=== PATIENT | female | born 1990 | race African-American/Black ===

== ENCOUNTER 2017-11-21 06:10 | Inpatient (IN) | payer MEDICARE, MEDICAID ==
[~2017-11-21] VITALS: Ht 160 cm; Wt 61.2 kg
[~2017-11-21 06:10] MED LIST: NITR-87 PO; PREN-88 PO
[2017-11-21] MEDS ORDERED: LACTATED RINGERS 1,000 ML IV SCH (06:21)
[2017-11-21] MEDS ORDERED: CARBOPROST TROMETHAMINE 250 MCG/ML AMPUL IM PRN (06:30)
[2017-11-21] MEDS ORDERED: LIDOCAINE HCL 1% 20ML VIAL (Pyxis) INJ INFIL PRN (06:30)
[2017-11-21] MEDS ORDERED: METHYLERGONOVINE MALEATE 0.2 MG/ML IM PRN (06:30)
[2017-11-21] MEDS ORDERED: DEXT 5%/LACTATED RINGERS 1,000 ML IV SCH (06:30)
[2017-11-21] MEDS ORDERED: RHO(D) IMMUNE GLOBULIN 300 MCG/SYR IM PRN (06:30)
[2017-11-21] MEDS ORDERED: MISOPROSTOL 200MCG TABLET VG PRN (06:30)
[2017-11-21] MEDS ORDERED: BUTORPHANOL TARTRATE 2 MG/ML VIAL IM PRN (06:45)
[2017-11-21] MEDS ORDERED: PENICILLIN G POTASSIUM 5 MMU in DEXT 5% WATER 100 ML IV SCH (07:00)
[2017-11-21] MEDS: DEXT 5%/LR + PITOCIN 20UNITS/L 1,000 ML IV SCH ×2 (09:16→09:23)
[2017-11-21 09:45] LABS: HEMATOCRIT. 38.4 % (36.0-48.0); HEMOGLOBIN. 12.8 g/dL (12.0-16.0); MEAN CORPUSCULAR HEMOGLOBIN 26.6 pg (28.0-32.0); MEAN CORPUSCULAR VOLUME 79.7 fL (81.0-99.0); MEAN PLATELET VOLUME 8.2 fl (7.4-10.4); PLATELET 168 x1000/uL (130-400); RED BLOOD CELL COUNT 4.82 mill/uL (4.2-5.4); RED CELL DISTRIBUTION WIDTH 15.1 % (11.6-14.6)
[2017-11-21] MEDS ORDERED: LANOLIN OINT 0.25 GM TUBE TOP PRN (09:45)
[2017-11-21 09:52] LABS: INR 0.9; PARTIAL THROMBOPLASTIN TIME 25.4 sec (23.4-31.0); PROTHROMBIN TIME 9.9 sec (9.4-11.6)
[2017-11-21 10:00] VITALS: BP 120/66
[2017-11-21 10:04] LABS: CLARITY URINE CLEAR (CLEAR); COLOR URINE YELLOW (YELLOW); KETONES URINE TRACE (NEGATIVE); LEUKOCYTE ESTERASE URINE NEGATIVE (NEGATIVE); NITRITE URINE NEGATIVE (NEGATIVE); OCCULT BLOOD URINE NEGATIVE (NEGATIVE); PH URINE 8.5 (4.5-8.0); PROTEIN URINE NEGATIVE (NEGATIVE); UROBILINOGEN URINE 0.2 E.U./dL (0.2-1.0)
[2017-11-21 10:30] VITALS: BP 93/60
[2017-11-21 10:36] LABS: *AMPHETAMINES SCREEN URINE NEGATIVE (NEGATIVE); *BARBITURATES SCREEN URINE NEGATIVE (NEGATIVE); *BENZODIAZEPINES SCREEN URINE NEGATIVE (NEGATIVE); *COCAINE SCREEN URINE NEGATIVE (NEGATIVE); CANNABINOID URINE SCREEN NEGATIVE (NEGATIVE); METHADONE URINE SCREEN NEGATIVE (NEGATIVE); OPIATES URINE SCREEN NEGATIVE (NEGATIVE); PHENCYCLIDINE URINE SCREEN NEGATIVE (NEGATIVE)
[2017-11-21 10:46] LABS: HEPATITIS B SURFACE ANTIGEN NEGATIVE; RUBELLA IGG 25.6 IU/mL (4.99-10)
[2017-11-21] MEDS ORDERED: PENICILLIN G POTASSIUM 2.5 MMU in DEXTROSE 5% WATER 50 ML IV SCH (11:00)
[2017-11-21] MEDS ORDERED: IBUPROFEN 400MG TABLET PO PRN (11:15)
[2017-11-21 11:33] LABS: PLATELET ESTIMATE NORMAL
[2017-11-21] MEDS: IBUPROFEN 800MG TABLET PO PRN ×2 (12:01→22:23)
[2017-11-21 16:00] VITALS: BP 99/53
[2017-11-21 20:20] VITALS: BP 107/63
[2017-11-21 22:23] VITALS: BP 108/64
[2017-11-21 23:20] VITALS: BP 105/65
[2017-11-22] MEDS ORDERED: TETANUS, DIPHTHERIA, PERTUSSIS VAC/PF 0.5ML (>7YR OLD) IM ONE (03:00)
[2017-11-22 06:18] LABS: BASOPHILS % 0.3 % (0.0-2.0); EOSINOPHILS % 0.8 % (0.0-5.0); HEMATOCRIT. 30.6 % (36.0-48.0); HEMOGLOBIN. 10.2 g/dL (12.0-16.0); LYMPHOCYTES % 16.6 % (20.0-50.0); MEAN CORPUSCULAR HEMOGLOBIN 26.5 pg (28.0-32.0); MEAN CORPUSCULAR VOLUME 79.2 fL (81.0-99.0); MEAN PLATELET VOLUME 8.7 fl (7.4-10.4); MONOCYTES % 8.2 % (2.0-8.0); NEUTROPHILS % 74.1 % (40.0-76.0); PLATELET 161 x1000/uL (130-400); RED BLOOD CELL COUNT 3.86 mill/uL (4.2-5.4); RED CELL DISTRIBUTION WIDTH 14.7 % (11.6-14.6)
[2017-11-22] MEDS: IBUPROFEN 800MG TABLET PO PRN ×2 (07:46→16:29)
[2017-11-22 08:00] VITALS: BP 100/62
[2017-11-22 16:00] VITALS: BP 99/63
[2017-11-22 19:30] VITALS: BP 115/66
[2017-11-22 22:00] VITALS: BP 116/67
[2017-11-22 23:45] VITALS: BP 103/65
[2017-11-23] MEDS: IBUPROFEN 800MG TABLET PO PRN (07:35)
[2017-11-23 07:50] VITALS: BP 103/73
== END 2017-11-23 13:47 | disposition home or self-care (01) | DRG 775 ==
LOC: OBSVTOIN 06:10 → L&D 06:10 → 7EST PP/OB 10:33
PROVIDERS: ADMIT Obstetrics & Gynecology; ATTEND Obstetrics & Gynecology
PROC: 10E0XZZ Delivery of Products of Conception, External Approach (ICD-10-PCS; principal; 2017-11-21 07:36)
DX: O99.52 Diseases of the respiratory system complicating childbirth (principal); D62 Acute posthemorrhagic anemia; O99.03 Anemia complicating the puerperium; J45.909 Unspecified asthma, uncomplicated; Z37.0 Single live birth; Z3A.39 39 weeks gestation of pregnancy; Z88.8 Allergy status to other drugs, medicaments and biological substances
CPT/HCPCS: 36415; 80305; 81003; 85025; 85610; 85730; 86592; 86703; 86762; 86850; 86900; 87340; 90715; J2540; J2590; J7060; J7121

== ENCOUNTER 2021-06-26 18:30 | Emergency (ER) | payer MEDICARE, MEDICAID ==
[~2021-06-26] VITALS: Ht 160 cm; Wt 53.0 kg
[2021-06-26] MEDS ORDERED: IBUPROFEN 600MG TABLET PO ONE (20:15)
[2021-06-26 20:20] VITALS: BP 120/88
[2021-06-26] MEDS ORDERED: IBUP-2029 MT (21:20)
== END 2021-06-26 22:03 | disposition home or self-care (01) ==
LOC: ER 18:30
DX: S92.352A Displaced fracture of fifth metatarsal bone, left foot, initial encounter for closed fracture (principal); J45.909 Unspecified asthma, uncomplicated; W18.39XA Other fall on same level, initial encounter; Y93.89 Activity, other specified; Y92.89 Other specified places as the place of occurrence of the external cause; Y99.8 Other external cause status
CPT/HCPCS: 73610; 73620; 99284